=== PATIENT | female | born 1995 | race African-American/Black ===

== ENCOUNTER 2019-10-02 12:27 | Emergency (ER) | payer SELFPAY ==
[~2019-10-02] VITALS: Ht 162.6 cm; Wt 95.3 kg
[2019-10-02 12:40] VITALS: BP 165/84
--- NOTE | 2019-10-02 12:50 | NUR ---
ED Nurse Note: patient walked into ED due to throat pain for 4 days, she said it is on the right side only. patient denies any fever. patient is alert awake x4 ambulatory, breathing unlabored and even, speaking in full sentences.
[2019-10-02] MEDS ORDERED: AMOXICILLIN500 MG ORAL (12:54)
[2019-10-02] MEDS ORDERED: IBUPROFEN400 MG ORAL (12:54)
--- NOTE | 2019-10-02 12:54 | Emergency Room Report ---
History of Present Illness General Chief Complaint: Sore Throat Source: Patient Present Illness HPI 25-year-old female with no significant past medical history here complaining of 4 days with 10 sore throat with right-sided anterior cervical lymphadenopathy. Denies any fever and chills, cough and congestion. Denies recent travel. Has not taken medication for symptoms. Denies abdominal pain, neck stiffness, photophobia, no neck stiffness noted. Denies Allergies: Coded Allergies: No Known Allergies (Unverified , 10/02/19) Patient History Past Medical History: see triage record Past Surgical History: none Pertinent Family History: none Last Menstrual Period: depo shot Now: No Immunizations: UTD Reviewed Nursing Documentation: PMH: Agreed; PSxH: Agreed Nursing Documentation-PMH Past Medical History: No Stated History Review of Systems All Other Systems: negative except mentioned in HPI Physical Exam Vital Signs Date Time Temp Pulse Resp B/P (MAP) Pulse Ox O2 Delivery O2 Flow Rate FiO2 10/02/19 12:40 99.0 86 20 165/84 (111) 98 Room Air Sp02 EP Interpretation: reviewed, normal General Appearance: no apparent distress, alert, GCS 15, non-toxic Head: normocephalic, atraumatic Eyes: bilateral eye normal inspection, bilateral eye PERRL ENT: EOM grossly intact, tonsillar swelling, pharyngeal erythema, tonsillar exudate Neck: supple, no meningismus, other - Right-sided anterior cervical lymphadenopathy Respiratory: chest non-tender, lungs clear, normal breath sounds, no rhonchi, no wheezing, speaking full sentences Cardiovascular #1: regular rate, rhythm, no edema, no murmur Cardiovascular #2: 2+ carotid (R), 2+ carotid (L) Gastrointestinal: normal bowel sounds, non tender, soft, non-distended, no guarding, no rebound Rectal: deferred Genitourinary: no CVA tenderness Musculoskeletal: back normal, no calf tenderness Neurologic: alert, motor strength/tone normal, oriented x3, sensory intact, responsive, speech normal Psychiatric: judgement/insight normal, memory normal, mood/affect normal, no suicidal/homicidal ideation Skin: no rash Lymphatic: adenopathy - Right-sided anterior cervical Medical Decision Making PA Attestation Diagnosis and treatment plans were reviewed and discussed with my supervising physician Dr. Melchor Diagnostic Impression: Primary Impression: Strep pharyngitis ER Course 25-year-old female with no significant past medical history here complaining of 4 days with 10 sore throat with right-sided anterior cervical lymphadenopathy. Denies any fever and chills, cough and congestion. Denies recent travel. Has not taken medication for symptoms. Denies abdominal pain, neck stiffness, photophobia, no neck stiffness noted. Denies Ddx considered but are not limited to: strep pharyngitis, URI, tonsillitis, peritonsillar abscess, influneza Vital signs: are WNL, pt. is afebrile H&PE are most consistent with: Strep pharyngitis ORDERS: Amoxicillin, ibuprofen ED INTERVENTIONS: None required at this time. DISCHARGE: At this time pt. is stable for d/c to home. Will provide printed patient care instructions, and any necessary prescriptions. Care plan and follow up instructions have been discussed with the patient prior to discharge. Take medication as directed, follow-up primary care provider, if worsening symptoms return to the emergency room Last Vital Signs Date Time Temp Pulse Resp B/P (MAP) Pulse Ox O2 Delivery O2 Flow Rate FiO2 10/02/19 12:40 99.0 86 20 165/84 98 Room Air Disposition: HOME, SELF-CARE Condition: Stable Scripts Ibuprofen* (MOTRIN*) 400 Mg Tablet 400 MG ORAL THREE TIMES A DAY, #30 TAB 0 Refills Prov: Felisha Ojeda 10/02/19 Amoxicillin* (AMOXIL*) 500 Mg Capsule 500 MG ORAL EVERY 12 HOURS for 10 Days, #20 CAP Prov: Felisha Ojeda 10/02/19 Patient Instructions: Strep Throat Additional Instructions: Take medication as directed, follow-up with primary care provider if continues to be symptomatic possible ultrasound of cervical lymph node, if worsening symptoms return to the emergency room Felisha Ojeda Oct 02, 2019 12:54
[2019-10-02 13:01] VITALS: BP 165/84
--- NOTE | 2019-10-02 13:02 | NUR ---
ER DISCHARGE NOTE: Patient is cleared to be discharged per LISA FOSS , pt is aox4, on room air, with stable vital signs. pt was given dc and prescription instructions, pt was able to verbalize understanding, pt id band removed without complications. pt is able to ambulate with steady gait. pt took all belongings.
== END 2019-10-02 13:30 | disposition home or self-care (01) ==
LOC: EMR 13:25
DX: J02.0 Streptococcal pharyngitis (principal)
CPT/HCPCS: 99282